=== PATIENT | female | born 1970 | race Caucasian/White ===

== ENCOUNTER 2016-07-13 05:08 | Emergency (ER) | payer OTHER ==
[~2016-07-13] VITALS: Ht 165.1 cm; Wt 107.0 kg
[~2016-07-13 05:08] MED LIST: LEVO.1 PO; LORT5TAB PO; ONDA1TAB16 PO; OSEL75 PO
[2016-07-13 05:10] VITALS: BP 142/85; PULSE 109; RESP 18; TEMP 97.8; O2SAT 96
[2016-07-13 05:53] LABS: AUTOMATED NEUTROPHIL # 6.3 TH/MM3 (1.8-7.7); BASOPHIL % 0.4 % (0.0-2.0); EOSINOPHIL # 0.1 TH/MM3 (0-0.4); EOSINOPHIL % 0.9 % (0.0-4.0); HEMATOCRIT 47.2 % (35.0-46.0); HEMO FLAGS DIFF FINAL; LYMPH % 14.5 % (9.0-44.0); LYMPHOCYTE # 1.2 TH/MM3 (1.0-4.8); MEAN CELL VOLUME 89.9 FL (80.0-100.0); MEAN CORPUSCULAR HEMOGLOBIN 30.4 PG (27.0-34.0); MEAN CORPUSCULAR HGB CONC 33.8 % (32.0-36.0); MONO % 6.9 % (0.0-8.0); NEUT % 77.3 % (16.0-70.0); PLATELET COUNT 230 TH/MM3 (150-450); RED BLOOD COUNT 5.24 MIL/MM3 (4.00-5.30); RED CELL DISTRIBUTION WIDTH 13.4 % (11.6-17.2); WHITE BLOOD COUNT 8.1 TH/MM3 (4.0-11.0)
[2016-07-13 06:12] LABS: ANION GAP 13 MEQ/L (5-15)
[2016-07-13 06:17] LABS: ALKALINE PHOSPHATASE 70 U/L (45-117); ALT (GPT) 89 U/L (10-53); AST (GOT) 52 U/L (15-37); BICARBONATE 22.3 MEQ/L (21.0-32.0); BLOOD UREA NITROGEN 9 MG/DL (7-18); CHLORIDE 100 MEQ/L (98-107); GLOMERULAR FILTRATION RATE 65 ML/MIN (>89); POTASSIUM 3.8 MEQ/L (3.5-5.1); SODIUM (NA) 135 MEQ/L (136-145); TOTAL BILIRUBIN ADULT 1.1 MG/DL (0.2-1.0)
[2016-07-13 06:23] VITALS: BP 116/68; PULSE 88; RESP 18; TEMP 98.4; O2SAT 95
[2016-07-13] MEDS ORDERED: METF1000 PO ×2 (06:27→08:27)
[2016-07-13] MEDS ORDERED: LEVO.1 PO ×2 (06:27→08:27)
[2016-07-13] MEDS ORDERED: diphenhydrAMINE HCL 50 MG/ML VIAL IV PUSH ONE (06:30)
[2016-07-13] MEDS ORDERED: PROCHLORPERAZINE INJ 10 MG/2 ML VIAL IVS ONE (06:30)
[2016-07-13] MEDS ORDERED: SODIUM CHLOR 0.9% 1000 ML INJ 1,000 ML IV ONE (06:30)
--- NOTE | 2016-07-13 06:32 | PD ---
HPI . Vomiting and diarrhea Chief Complaint: GI Complaint Time Seen by Provider: 06:14 Travel History International Travel<30 days: No Contact w/Intl Traveler<30days: No Traveled to known affect area: No History of Present Illness HPI Patient presents with a three-day history of vomiting and diarrhea. She denies fever. She denies any significant abdominal pain. She denies any urinary tract symptoms. She reports 2 episodes of emesis today. No emesis yesterday. Approximately 3 episodes of emesis the day before. She reports to [facility] to count episodes of diarrhea. She states that the diarrhea is very malodorous. No blood. [facility]LY [facility] Past Medical History Narrative Medical She denies any chronic medical problems. She denies any previous surgical history. Diabetes: Yes Patient Takes Glucophage: Yes Headaches: Yes Musculoskeletal: Yes (CHRONIC BACK PAIN) Thyroid Disease: Yes Tetanus Vaccination: > 5 Years Influenza Vaccination: No ?: Not LMP: LAST MONTH : 0 Past Surgical History Surgical History: No Previous Surgery Social History Alcohol Use: No Tobacco Use: No Substance Use: No Allergies-Medications (Allergen,Severity, Reaction): Coded Allergies: No Known Allergies (Verified , 07/13/16) Reported Meds & Prescriptions Reported Meds & Active Scripts Active Lortab 5/500 (Acetaminophen/Hydrocodone Bitart) 5 Mg/500 Mg Tab 1 Tab PO Q6HPRN Tamiflu (Oseltamivir Phosphate) 75 Mg Cap 75 Mg PO BID 5 Days Zofran Tab (Ondansetron HCl) 4 Mg Tab 4 Mg PO Q4-6HPRN Reported Synthroid (Levothyroxine Sodium) 100 Mcg Tab 100 Mcg PO DAILY Review of Systems Except as stated in HPI: all other systems reviewed are Neg General / Constitutional: No: Fever, Chills HENT: Positive: Lightheadedness Cardiovascular: No: Chest Pain or Discomfort Respiratory: No: Cough Gastrointestinal: Positive: Nausea, Vomiting, Diarrhea, Abdominal Pain ( minimal abdominal pain) Genitourinary: No: Urgency, Frequency, Dysuria, Decreased Urinary Output Physical Exam Narrative GENERAL: The patient is a healthy-appearing woman in no acute distress. SKIN: Warm and dry. HEAD: Atraumatic. Normocephalic. EYES: Pupils equal and round. Anicteric. ENT: No nasal bleeding or discharge. Mucous membranes pink and moist. NECK: Trachea midline. Neck supple. CARDIOVASCULAR: Regular rate and rhythm. Heart sounds normal. RESPIRATORY: No accessory muscle use. Lungs are clear with full air movement throughout. GASTROINTESTINAL: Abdomen soft, non-tender, nondistended. MUSCULOSKELETAL: No obvious deformities. No edema. NEUROLOGICAL: Awake and alert. No obvious cranial nerve deficits. Motor grossly within normal limits. Normal speech. PSYCHIATRIC: Appropriate mood and affect; insight and judgment normal. Data Data Last Documented VS Vital Signs Date Time Temp Pulse Resp B/P Pulse Ox O2 Delivery O2 Flow Rate FiO2 07/13/16 06:23 98.4 88 18 116/68 95 Room Air Orders Complete Blood Count With Diff (07/13/16 05:14) Comprehensive Metabolic Panel (07/13/16 05:14) Urinalysis - C+S If Indicated (07/13/16 05:14) Iv Access Insert/Monitor (07/13/16 05:14) Lipase (07/13/16 05:14) Sodium Chlor 0.9% 1000 Ml Inj (Ns 1000 M (07/13/16 06:30) Prochlorperazine Inj (Compazine Inj) (07/13/16 06:30) Diphenhydramine Inj (Benadryl Inj) (07/13/16 06:30) Bedside Glucose EDGARDO.AC&HS (07/13/16 06:23) Labs Laboratory Tests Test 07/13/16 05:26 White Blood Count 8.1 TH/MM3 Red Blood Count 5.24 MIL/MM3 Hemoglobin 15.9 GM/DL Hematocrit 47.2 % Mean Corpuscular Volume 89.9 FL Mean Corpuscular Hemoglobin 30.4 PG Mean Corpuscular Hemoglobin 33.8 % Concent Red Cell Distribution Width 13.4 % Platelet Count 230 TH/MM3 Mean Platelet Volume 10.8 FL Neutrophils (%) (Auto) 77.3 % Lymphocytes (%) (Auto) 14.5 % Monocytes (%) (Auto) 6.9 % Eosinophils (%) (Auto) 0.9 % Basophils (%) (Auto) 0.4 % Neutrophils # (Auto) 6.3 TH/MM3 Lymphocytes # (Auto) 1.2 TH/MM3 Monocytes # (Auto) 0.6 TH/MM3 Eosinophils # (Auto) 0.1 TH/MM3 Basophils # (Auto) 0.0 TH/MM3 CBC Comment DIFF FINAL Differential Comment Sodium Level 135 MEQ/L Potassium Level 3.8 MEQ/L Chloride Level 100 MEQ/L Carbon Dioxide Level 22.3 MEQ/L Anion Gap 13 MEQ/L Blood Urea Nitrogen 9 MG/DL Creatinine 0.93 MG/DL Estimat Glomerular Filtration 65 ML/MIN Rate Random Glucose 408 MG/DL Calcium Level 8.9 MG/DL Total Bilirubin 1.1 MG/DL Aspartate Amino Transf 52 U/L (AST/SGOT) Alanine Aminotransferase 89 U/L (ALT/SGPT) Alkaline Phosphatase 70 U/L Total Protein 7.8 GM/DL Albumin 3.8 GM/DL Lipase 136 U/L [facility] Medical Decision Making Medical Screen Exam Complete: Yes Emergency Medical Condition: Yes Differential Diagnosis Differential diagnosis includes viral gastroenteritis, food poisoning, bacterial enteritis. Narrative Course Patient presents for evaluation and treatment of persistent vomiting and diarrhea. Patient denies any known medical history. Her glucose here is greater than 400. I have ordered IV fluids with a recheck sugar following fluids. Care will be turned over to the oncoming physician. Diagnosis Primary Impression: Gastroenteritis Additional Impression: Hyperglycemia Condition: Stable Alize Mcintyre MD Jul 13, 2016 06:32
[2016-07-13] MEDS ORDERED: metFORMIN HCL 500 MG TAB PO ONE (06:45)
[2016-07-13 06:54] LABS: BACTERIA, URINE OCC /hpf; BLOOD, URINE NEG (NEG); GLUCOSE,URINE 1000 mg/dL (NEG); GRANULAR CAST, URINE 1 /lpf; HYALINE CAST, URINE 1 /lpf (RARE); KETONE, URINE 40 mg/dL (NEG); MUCUS URINE FEW /lpf (OCC); NITRITE,URINE NEG (NEG); PH, URINE 5.5 (5.0-8.5); SQUAMOUS EPITHELIAL CELL URINE 4 /hpf (0-5); TRANSITIONAL EPI CELLS, URINE <1 /hpf; URINE COLOR YELLOW (YELLW/STRAW)
[2016-07-13 06:56] LABS: COMMENT (UR) CULT NOT INDICATED; CULTURE IF INDICATED CULT NOT INDICATED
--- NOTE | 2016-07-13 08:17 | PD ---
Data Data Last Documented VS Vital Signs Date Time Temp Pulse Resp B/P Pulse Ox O2 Delivery O2 Flow Rate FiO2 07/13/16 06:23 98.4 88 18 116/68 95 Room Air Orders Complete Blood Count With Diff (07/13/16 05:14) Comprehensive Metabolic Panel (07/13/16 05:14) Urinalysis - C+S If Indicated (07/13/16 05:14) Iv Access Insert/Monitor (07/13/16 05:14) Lipase (07/13/16 05:14) Sodium Chlor 0.9% 1000 Ml Inj (Ns 1000 M (07/13/16 06:30) Prochlorperazine Inj (Compazine Inj) (07/13/16 06:30) Diphenhydramine Inj (Benadryl Inj) (07/13/16 06:30) Bedside Glucose EDGARDO.AC&HS (07/13/16 06:23) Metformin (Glucophage) (07/13/16 06:45) Fluconazole (Diflucan) (07/13/16 09:00) Labs Laboratory Tests Test 07/13/16 07/13/16 05:26 05:50 White Blood Count 8.1 TH/MM3 Red Blood Count 5.24 MIL/MM3 Hemoglobin 15.9 GM/DL Hematocrit 47.2 % Mean Corpuscular Volume 89.9 FL Mean Corpuscular Hemoglobin 30.4 PG Mean Corpuscular Hemoglobin 33.8 % Concent Red Cell Distribution Width 13.4 % Platelet Count 230 TH/MM3 Mean Platelet Volume 10.8 FL Neutrophils (%) (Auto) 77.3 % Lymphocytes (%) (Auto) 14.5 % Monocytes (%) (Auto) 6.9 % Eosinophils (%) (Auto) 0.9 % Basophils (%) (Auto) 0.4 % Neutrophils # (Auto) 6.3 TH/MM3 Lymphocytes # (Auto) 1.2 TH/MM3 Monocytes # (Auto) 0.6 TH/MM3 Eosinophils # (Auto) 0.1 TH/MM3 Basophils # (Auto) 0.0 TH/MM3 CBC Comment DIFF FINAL Differential Comment Sodium Level 135 MEQ/L Potassium Level 3.8 MEQ/L Chloride Level 100 MEQ/L Carbon Dioxide Level 22.3 MEQ/L Anion Gap 13 MEQ/L Blood Urea Nitrogen 9 MG/DL Creatinine 0.93 MG/DL Estimat Glomerular Filtration 65 ML/MIN Rate Random Glucose 408 MG/DL Calcium Level 8.9 MG/DL Total Bilirubin 1.1 MG/DL Aspartate Amino Transf 52 U/L (AST/SGOT) Alanine Aminotransferase 89 U/L (ALT/SGPT) Alkaline Phosphatase 70 U/L Total Protein 7.8 GM/DL Albumin 3.8 GM/DL Lipase 136 U/L Urine Color YELLOW Urine Turbidity CLEAR Urine pH 5.5 Urine Specific Harriet 1.046 Urine Protein 100 mg/dL Urine Glucose (UA) 1000 mg/dL Urine Ketones 40 mg/dL Urine Occult Blood NEG Urine Nitrite NEG Urine Bilirubin NEG Urine Urobilinogen LESS THAN 2.0 MG/DL Urine Leukocyte Esterase TRACE Urine RBC 2 /hpf Urine WBC 3 /hpf Urine Squamous Epithelial 4 /hpf Cells Urine Transitional Epithelial <1 /hpf Cells Urine Bacteria OCC /hpf Urine Hyaline Casts 1 /lpf Urine Granular Casts 1 /lpf Urine Mucus FEW /lpf Microscopic Urinalysis Comment CULT NOT INDICATED MDM Supervised Visit with VIDAL: No Narrative Course Patient care assumed from Dr. Mcintyre at 0700, briefly this patient presented to the emergency department with nausea vomiting and diarrhea for the past few days. Denied any abdominal pain. Does have a history of diabetes has not been taking her metformin. Blood sugar was elevated to just over 400. Patient was given metformin as well as normal saline bolus. Repeat blood sugar has dropped to just over 300. Patient on my exam is benign abdomen appears well well- hydrated nontoxic. She is stable for discharge. Prescription written as below. Discussed need follow-up the primary care physician. Diagnosis Primary Impression: Gastroenteritis Additional Impression: Hyperglycemia Patient Instructions: General Instructions Departure Forms: Tests/Procedures Med/Other Pt SpecificInfo: Prescription(s) given Scripts Fluconazole (Diflucan)150 Mg [id number] Mg PO ONCE #1 TAB Ref 0 Prov:Gianfranco Mccullough MD 07/13/16 Metronidazole (Flagyl)500 Mg [id number] Mg PO BID 7 Days Ref 0 Prov:Gianfranco Mccullough MD 07/13/16 Ondansetron Odt (Zofran Odt)4 Mg Tab4 Mg SL Q6HR PRN (Nausea/Vomiting) #30 TAB Ref 0 Prov:Gianfranco Mccullough MD 07/13/16 Metformin 1,000 Mg Tab1,000 Mg PO BIDPC #60 TAB Ref 0 With meals Prov:Gianfranco Mccullough MD 07/13/16 Levothyroxine (Synthroid)100 Mcg Pqr050 Mcg PO DAILY #30 TAB Ref 0 Prov:Gianfranco Mccullough MD 07/13/16 Disposition: 01 DISCHARGE HOME Condition: Stable Gianfranco Mccullough MD Jul 13, 2016 08:17
[2016-07-13] MEDS ORDERED: ZOFR4TAB3 SL (08:27)
[2016-07-13] MEDS ORDERED: DIFL150T PO (08:27)
[2016-07-13] MEDS ORDERED: METR-1 PO (08:27)
[2016-07-13] MEDS ORDERED: FLUCONAZOLE 100 MG TAB PO SCH (09:00)
== END 2016-07-13 09:41 | disposition home or self-care (01) ==
LOC: NEPE 05:08
DX: K52.9 Noninfective gastroenteritis and colitis, unspecified (principal); E11.65 Type 2 diabetes mellitus with hyperglycemia; Z79.4 Long term (current) use of insulin
CPT/HCPCS: 80053; 81001; 83690; 85025; 96361; 96374; 96375; 99284; J0780; J1200; J7030